=== PATIENT | male | born 1990 | race Caucasian/White ===

== ENCOUNTER 2016-10-30 02:17 | Emergency (ER) | payer SELFPAY ==
--- NOTE | 2016-10-30 02:40 | PDOC ---
History of Present Illness - General History Source: Patient Exam Limitations: No Limitations - History of Present Illness Initial Comments: 10/30/16 02:47 The patient is a 26 year old male with no significant past medical history who presents to the ED for nausea, vomiting, and headache prior to arrival. Patient reports he was in his usual state of health prior to going to bed last night and woke up around 1am with abdominal discomfort, nausea, and subsequently having 4 episode of nonbloody/nonbilious vomiting. Denies diarrhea. His last meal was around 8pm last night. States he also developed a headache. Denies any dizziness or changes in vision. At time of evaluation, patient reports his symptoms has subsided, but he still has a headache. Patient did not take any medication for his headache. The patient denies fever, chills, cough, SOB, chest pain, and palpitations. Allergies: NKDA Social History: No alcohol, tobacco, or drug use reported. Past Surgical History: None reported PCP: None reported <Stephanie Austin - Last Filed: 10/30/16 03:38> - General History Source: Patient <IsidroSadiq marques - Last Filed: 10/30/16 05:03> - General Chief Complaint: Nausea/Vomiting Stated Complaint: NAUSEA, FEVER Time Seen by Provider: 10/30/16 02:36 Past History <Stephanie Austin - Last Filed: 10/30/16 03:38> - Psycho/Social/Smoking Cessation Hx Suicidal Ideation: No Smoking History: Never smoked Have you smoked in the past 12 months: No Information on smoking cessation initiated: No Hx Alcohol Use: No Drug/Substance Use Hx: No <Sadiq Willingham - Last Filed: 10/30/16 05:03> - Past Medical History Allergies/Adverse Reactions: Allergies Allergy/AdvReac Type Severity Reaction Status Date / Time No Known Allergies Allergy Verified 10/30/16 02:29 Home Medications: Ambulatory Orders Ibuprofen 800 mg PO TID #30 tablet 10/30/16 Metoclopramide HCl [Reglan -] 10 mg PO TID #30 tablet 10/30/16 Review of Systems - Review of Systems Able to Perform ROS?: Yes Comments:: 10/30/16 02:47 CONSTITUTIONAL: Absent: fever, no chills, no fatigue EYES: Absent: visual changes ENT: Absent: ear pain, no sore throat CARDIOVASCULAR: Absent: chest pain, no palpitations RESPIRATORY: Absent: cough, no SOB GI: +abdominal discomfort, nausea, vomiting Absent: no constipation, no diarrhea GENITOURINARY: Absent: dysuria, no frequency, no hematuria MUSCULOSKELETAL: Absent: back pain, no arthralgia, no myalgia SKIN: Absent: rash NEURO: +headache <Stephanie Austin - Last Filed: 10/30/16 03:38> *Physical Exam - Vital Signs Last Vital Signs Temp Pulse Resp BP Pulse Ox 98.1 F 67 18 127/72 100 10/30/16 02:28 10/30/16 02:28 10/30/16 02:28 10/30/16 02:28 10/30/16 02:28 - Physical Exam Comments: 10/30/16 02:47 GENERAL: Well-appearing, well-nourished. No apparent distress. HEENT: Normocephalic, atraumatic. PERRL, EOM intact. CARDIOVASCULAR: Normal S1, S2. Regular rate and rhythm. PULMONARY: Clear to auscultation bilaterally. ABDOMEN: Soft, non-distended, non-tender. EXTREMITIES: Normal ROM in all four extremities. No gross deformities. SKIN: Warm, dry. No rash NEUROLOGICAL: No focal neurological deficits. <Stephanie Austin - Last Filed: 10/30/16 03:38> - Vital Signs Last Vital Signs Temp Pulse Resp BP Pulse Ox 98.1 F 67 18 127/72 100 10/30/16 02:28 10/30/16 02:28 10/30/16 02:28 10/30/16 02:28 10/30/16 02:28 <Sadiq Willingham - Last Filed: 10/30/16 05:03> ED Treatment Course - LABORATORY CBC & Chemistry Diagram: 10/30/16 02:45 10/30/16 02:45 - RADIOLOGY Radiograph Interpretation: 10/30/16 03:38 EXAM: HEAD CT WITHOUT CONTRAST Reviewed by Imaging business risk consultant: FINDINGS:The ventricular system is midline and nondilated. The sulcal pattern is normal for the patient's age. There is no bleed, mass, extra-axial fluid collection or mass effect. No skull fracture or skull lesion is identified. The visualized paranasal sinuses and mastoid air cells are clear. IMPRESSION: No evidence of pathology. <Stephanie Austin - Last Filed: 10/30/16 03:38> - LABORATORY CBC & Chemistry Diagram: 10/30/16 02:45 10/30/16 02:45 <Sadiq Willingham - Last Filed: 10/30/16 05:03> Medical Decision Making - Medical Decision Making 10/30/16 04:59 Dr. Willingham: The scribe's documentation has been prepared under my direction and personally reviewed by me in its entirery. I confirm that the note above accurately reflects all work, treatment, procedures, and medical decision making performed by me. <Sadiq Willingham - Last Filed: 10/30/16 05:03> *DC/Admit/Observation/Transfer - Attestations Scribe Attestion: 10/30/16 02:47 Documentation prepared by Stephanie Austin, acting as medical artist for Sadiq Willingham MD/DO. <Stephanie Austin - Last Filed: 10/30/16 03:38> - Discharge Dispostion Admit: No <Sadiq Willingham - Last Filed: 10/30/16 05:03> Diagnosis at time of Disposition: Headache Qualifiers: Headache chronicity pattern: unspecified pattern Intractability: not intractable Nausea & vomiting Qualifiers: Vomiting type: unspecified Vomiting Intractability: unspecified Qualified Code( s): R11.2 - Nausea with vomiting, unspecified - Discharge Dispostion Disposition: HOME Condition at time of disposition: Stable - Referrals Referrals: Guzman Cueva MD [Staff Physician] - Iain Mccormack MD [Staff Physician] - - Patient Instructions Printed Discharge Instructions: DI for Nausea -- Adult, DI for Vomiting -- Adult, DI for Headache - Post Discharge Activity Work/School Note: Back to Work
[2016-10-30] MEDS ORDERED: ONDANSETRON 4 MG/2 ML VIAL IVPUSH STA (02:41)
[2016-10-30] MEDS ORDERED: SODIUM CHLORIDE 1,000 ML IV STA (02:42)
[2016-10-30 02:50] VITALS: BP 127/72; PULSE 67; TEMP 98.1; BMI 29.5
[2016-10-30 02:54] LABS: BASOPHIL 0.6 % (0-2.0); EOSINOPHIL 2.3 % (0-4.5); MCH 29.1 pg (25.7-33.7); MCHC 33.1 g/dl (32.0-35.9); MEAN CELL VOLUME 87.9 fl (80-96); MEAN PLT VOLUME 9.1 fl (7.5-11.1); NEUTROPHILS 53.7 % (42.8-82.8); PLATELET COUNT 190 K/MM3 (134-434); RDW 12.9 % (11.9-15.9); WHITE BLOOD COUNT 8.3 K/mm3 (4.0-10.0)
[2016-10-30 03:06] LABS: INR 1.09 (0.82-1.09)
[2016-10-30 03:16] LABS: ALBUMIN 3.9 g/dl (3.4-5.0); ALK PHOS 81 U/L (45-117); ANION GAP 7 (8-16); BILIRUBIN,TOTAL 1.5 mg/dL (0.2-1.0); CALCIUM 8.8 mg/dL (8.5-10.1); CO2 31 mmol/L (21-32); GLUCOSE,RANDOM 107 mg/dL (74-106); MAGNESIUM 2.1 mg/dL (1.8-2.4); SGOT/AST 31 U/L (15-37); SGPT/ALT 44 U/L (12-78); TOT PROT 6.9 g/dl (6.4-8.2)
[2016-10-30 03:23] LABS: URINE APPEARANCE CLEAR; URINE BILIRUBIN NEGATIVE (NEGATIVE); URINE BLOOD NEGATIVE (NEGATIVE); URINE COLOR YELLOW; URINE GLUCOSE (UA) NEGATIVE (NEGATIVE); URINE KETONE NEGATIVE (NEGATIVE); URINE LEUK ESTERASE NEGATIVE (NEGATIVE); URINE NITRITE NEGATIVE (NEGATIVE); URINE PROTEIN NEGATIVE (NEGATIVE); URINE UROBILINOGEN NEGATIVE E.U./dl (0.2-1.0)
[2016-10-30] MEDS ORDERED: KETOROLAC TROMETHAMINE 30 MG/1 ML VIAL IVPUSH ONE (03:37)
[2016-10-30] MEDS ORDERED: METOCLOPRAMIDE HCL INJECTION 10 MG/2 ML VIAL IVPUSH ONE (03:38)
[2016-10-30] MEDS ORDERED: METOCLOPRAMIDE HCL INJECTION 10 MG/2 ML VIAL ONE (03:40)
[2016-10-30] MEDS ORDERED: KETOROLAC TROMETHAMINE 30 MG/1 ML VIAL ONE (03:40)
== END 2016-10-30 05:16 | disposition home or self-care (01) ==
LOC: JER 02:17
PROC: 3E0337Z Introduction of Electrolytic and Water Balance Substance into Peripheral Vein, Percutaneous Approach (ICD-10-PCS; principal; 2016-10-30)
PROC: 3E0333Z Introduction of Anti-inflammatory into Peripheral Vein, Percutaneous Approach (ICD-10-PCS; 2016-10-30)
PROC: 3E033GC Introduction of Other Therapeutic Substance into Peripheral Vein, Percutaneous Approach (ICD-10-PCS; 2016-10-30)
DX: R51 Headache (principal); R11.2 Nausea with vomiting, unspecified
CPT/HCPCS: 36415; 70450-TC; 80053; 81003; 83690; 83735; 85025; 85610; 99283-25